=== PATIENT | male | born 1985 | race Hispanic/Latino ===

== ENCOUNTER 2018-01-22 11:00 | Outpatient (AMBR) | payer MEDICAID, SELFPAY ==
--- NOTE | 2017-12-26 14:45 | PT.ODAYNRPT ---
PT Outpatient Daily Note Date of Service: December 26, 2017 OP Daily Note Visit Reasons: thorasic disc Outpatient Physical Therapy Treatment Date: 12/26/17 Subjective: pt reports he can stand up on his own but fatigues. Objective: see flow sheet. Assessment: used gait belt for treatment and explained to pt the reasoning. after using for the first 2 exercises pt took it off as it was suffocating him. I stood in front of him during the exercises inside the PB. pt did well with his sit<>Stands. the standing calf raises is where pt was using more strength causing a pain in the stomach. pt is breathing heavy throughout the exercises. gave pt water and advised him to sit and rest for a few mins. added a new exercise in standing using the same ankle weights in which he had no difficulty with. overall pt did well today. Plan: continue POC per PT. Length of Time (minutes) of Treatment: 30 Minutes Office Procedures PT Procedures PT Date of Service: 12/26/17 Therapeutic Exercise 30 minutes: Yes
--- NOTE | 2018-01-01 14:37 | PT.ODAYNRPT ---
PT Outpatient Daily Note Date of Service: January 01, 2018 OP Daily Note Visit Reasons: thorasic disc Outpatient Physical Therapy Treatment Date: 01/01/18 Subjective: Pt's legs still spasm. Pt stated that no falls lately. Pt still feels weak and has difficulty with car transfer Objective: Please see flow chart for list of ther ex performed Assessment: spasm with sci fit. Pt's leg fatigue with standing for ~ 30 ses after last sit to stand rep. Pt was given HEP to continue at home as we continue PT to maintain LE strength Plan: Continue with PT Length of Time (minutes) of Treatment: 30 Minutes Office Procedures PT Procedures PT Date of Service: 12/26/17 Therapeutic Exercise 30 minutes: Yes PT Procedures PT Date of Service: 01/01/18 Therapeutic Exercise 30 minutes: Yes
--- NOTE | 2018-01-08 14:35 | PT.ODAYNRPT ---
PT Outpatient Daily Note Date of Service: January 08, 2018 OP Daily Note Visit Reasons: thorasic disc Outpatient Physical Therapy Treatment Date: 01/08/18 Subjective: Pt's legs still spasm. Pt stated that he's moving a little better. Pt's been doing HEP at home. Objective: Please see flow chart for list of ther ex performed Assessment: able to perform standing exercises and pre gait with good stability Plan: Continue with PT Length of Time (minutes) of Treatment: 30 Minutes Office Procedures PT Procedures PT Date of Service: 12/26/17 Therapeutic Exercise 30 minutes: Yes PT Procedures PT Date of Service: 01/08/18 Therapeutic Exercise 30 minutes: Yes PT Procedures PT Date of Service: 01/01/18 Therapeutic Exercise 30 minutes: Yes
--- NOTE | 2018-01-16 16:52 | PT.ODAYNRPT ---
PT Outpatient Daily Note Date of Service: January 16, 2018 OP Daily Note Visit Reasons: thorasic disc Outpatient Physical Therapy Treatment Date: 01/16/18 Subjective: pt reported using his crutches more at home as he has more family around to assist him. pt reported using another WC due to his broke down. Objective: see flow sheet. Assessment: pt was having a lot of shaking of the BLEs throughout ther ex. advised pt to take deep breaths and put hands on knees to add pressure which helped stop the shaking. pt has increase in muscle fatigue due to more walking at home. pt seemed anxious which would also cause the shaking. pt did not finish the whole period time on the bike due to increase in shaking which would only stop for a few seconds. Plan: continue POC per PT. Length of Time (minutes) of Treatment: 30 Minutes Office Procedures PT Procedures PT Date of Service: 12/26/17 Therapeutic Exercise 30 minutes: Yes PT Procedures PT Date of Service: 01/08/18 Therapeutic Exercise 30 minutes: Yes PT Procedures PT Date of Service: 01/01/18 Therapeutic Exercise 30 minutes: Yes PT Procedures PT Date of Service: 01/16/18 Therapeutic Exercise 30 minutes: Yes
--- NOTE | 2018-01-22 11:44 | PT.ODAYNRPT ---
PT Outpatient Daily Note Date of Service: January 22, 2018 OP Daily Note Visit Reasons: thorasic disc Outpatient Physical Therapy Treatment Date: 01/22/18 Subjective: Pt is very sore from what he's been doing at home. Pt's been standing more and doing his HEP. Objective: Please see flow chart for list of ther ex performed Assessment: today Pt was able to ambulate with FWW multiple times ~ 3-4 ft at a time with rest. Pt require cues to push off and heel toe on the right LE. Pt was fatigue at the end of PT session Plan: Continue with PT Length of Time (minutes) of Treatment: 30 Minutes Office Procedures PT Procedures PT Date of Service: 12/26/17 Therapeutic Exercise 30 minutes: Yes PT Procedures PT Date of Service: 01/08/18 Therapeutic Exercise 30 minutes: Yes PT Procedures PT Date of Service: 01/22/18 Gait Training 15 minutes: Yes Therapeutic Activity 15 minutes: Yes PT Procedures PT Date of Service: 01/01/18 Therapeutic Exercise 30 minutes: Yes PT Procedures PT Date of Service: 01/16/18 Therapeutic Exercise 30 minutes: Yes
== END 2018-01-24 23:59 | disposition home or self-care (01) ==
PROVIDERS: PCP Nurse Practitioner Family; Referring Provider Nurse Practitioner Family
DX: I10 Essential (primary) hypertension (principal)
CPT/HCPCS: 97110; 97116; 97530